=== PATIENT | male | born 1955 | race Caucasian/White ===

== ENCOUNTER 2017-05-14 08:19 | Day surgery (SDC) | payer OTHER ==
[~2017-05-14] VITALS: Ht 177.8 cm; Wt 105.0 kg
[2017-05-14] VITALS (11 sets, daily range): BP systolic 120–162; BP diastolic 63–84; PULSE 65–80; TEMP 36.5–37; O2SAT 94–98; Ht 177.8 cm; Wt 105.0 kg
[~2017-05-14 08:19] MED LIST: CALCTAB7 PO; CHOL100027 PO; CHROPOW21 PO; COEN100C15 PO; FINA5TAB4 PO; FLAXSEED OIL PO; GEMF600T3 PO; GLC500 PO; LISI20TA PO; MULT-513 PO; OMEG10007 PO; OXYC-57 PO; ROSU20TA PO; TAMS0.4C59 PO
--- NOTE | 2017-05-14 10:42 | Discharge Instructions ---
Discharge Instructions Procedure Procedure Date: May 14, 2017. Reason for visit: Lumbar Stenosis. Discharge Discharge Date: May 14, 2017. Discharge Diagnosis: lumbar pain Instructions Activity Recommendations: 1 Day-May resume regular activity, 48 Hours of decreased exertion, 1 Day with no driving/machine use Return to School/Work: no limitations Recommended Home Diet: Resume Previous Diet Allergies Coded Allergies: Apple (Verified Allergy, Unknown, DIFFICULTY BREATHING, 05/14/17) Cinnamon (Verified Allergy, Unknown, DIFFICULTY BREATHING, 05/14/17) Banks (Verified Allergy, Unknown, DIFFICULTY BREATHING, 05/14/17) Penicillins (Verified Allergy, Unknown, SWELLING, 05/14/17) Potato (Verified Allergy, Unknown, DIFFICULTY BREATHING WITH RAW POTATOES , 05/14/17) Tetracycline (Verified Allergy, Unknown, SWELLING, 05/14/17) Triprolidine (Verified Allergy, Unknown, SWELLING, 05/14/17) Unclassified Drugs (Verified Allergy, Unknown, SWELLING WITH ORENZYME, ) Raghu Lemon Recommendations: Call your doctor if: * Temperature above 101 degrees * Pain not relieved by pain medicine ordered * There is increased drainage or redness from any incision * You have any unanswered questions or concerns. Your Doctors Instructions noted above were prepared by provider James Freeman. Patient Signature Section: Patient Instructions Signature Page Eron Bennett Patient (or Guardian) Signature/Date: I have read and understand the instructions given to me by my caregivers. Caregiver/RN/Doctor Signature/Date: The above-named patient and/or guardian has received patient instructions on this date. + Original Patient Signature Page (only) stays with chart. Please make copy for patient.
[2017-05-14] MEDS ORDERED: ACETAMINOPHEN 500 MG TAB PO PRN (10:45)
--- NOTE | 2017-05-14 11:50 | DIAGNOSTIC IMAGING REPORT ---
LUMBAR SPINE WITH CLINICAL HISTORY: CT MYELOGRAM LUMBAR SPINE back pain TECHNIQUE: Transaxial acquisition with multi axial reformatted images. COMPARISON STUDY: 01/08/2012 FINDINGS: Study is considered virtually identical to the prior exam. Resolution is somewhat compromised due to change of body habitus. Postoperative changes consistent with laminectomy and fusion are again noted. These is seen at L4-L5 and L5-S1. Interpedicular screws are present at L3. Moderate disc space narrowing is unchanged at L4-L5 and L5-S1. Minimal disc bulges are again noted L1-L2 and L2-L3. Minimal narrowing of the spinal canal at L4-L5 is stable. There is no evidence for critical or high-grade stenotic process. There are findings of a narrowing left neural foramina at L5-S1 unchanged. Posterior fusion appears to be solid. IMPRESSION: 1. Identical exam compared to the prior study dated 01/08/2012. 2. Findings of posterior laminectomies and fusions at L4-L5, L5-S1, and L3. 3. The fixating hardware appears intact. 4. Minimal disc bulges L1-L2 and L2-L3 unchanged. 5. Mild narrowing of the spinal canal at L4-L5 also stable. 6. Narrowing left neural foramina at L5-S1 unchanged. 7. Findings of arachnoiditis on the prior study appears less prominent on the current exam. 8. Study is technically limited due to the patient's change in body habitus. The above report was generated using voice recognition software. It may contain grammatical, syntax or spelling errors. Electronically signed by: James Freeman M.D. 05/14/2017 11:48 AM Dictated Date/Time: 05/14/2017 11:36 AM
--- NOTE | 2017-05-14 12:07 | DIAGNOSTIC IMAGING REPORT ---
Myelogram, super/inter LUMBAR CLINICAL HISTORY: CHRONIC BACK PAIN TECHNIQUE: Under fluoroscopic guidance, 10 cc nonionic contrast was injected to the L3-L4 level of the lumbar spine. COMPARISON STUDY: 05/14/2017 FINDINGS: Interpedicular screws at L3 as well as posterior laminectomy and fusion at L4-L5 are noted and are considered stable. Disc spacers at L4-L5 and L5-S1 are stable. Degenerative narrowing of the disc primarily at L5-S1 are stable. There are findings of mild narrowing of spinal canal at L4-L5 unchanged. No additional significant compromise of the spinal canal is appreciated. There is slight disc bulges at L1-L2 and L2-L3. This is unchanged. Some coarsening of the nerve roots suggesting arachnoiditis is less prominent. IMPRESSION: 1. Stable to slightly improved exam compared to the prior study. 2. Stable postoperative changes including posterior laminectomy and fusion-type change. 3. Slight disc bulges at L1-L2 and L2-L3. 4. Mild narrowing of the spinal canal at L4-L5. 5. Findings of arachnoiditis on the prior exam are less prominent currently. 6. No complications were present or noted at the time of the exam. The above report was generated using voice recognition software. It may contain grammatical, syntax or spelling errors. Electronically signed by: James Freeman M.D. 05/14/2017 12:06 PM Dictated Date/Time: 05/14/2017 12:03 PM
[2017-05-22] MEDS ORDERED: LISI-787 PO (15:57)
[2017-05-22] MEDS ORDERED: METF-382 PO (15:57)
[2017-05-22] MEDS ORDERED: FLAX10007 PO (15:57)
[2017-05-22] MEDS ORDERED: GLIM4TAB2 PO (15:57)
[2017-05-22] MEDS ORDERED: ACT15 PO (15:57)
[2017-05-22] MEDS ORDERED: PRAV20TA PO (15:57)
== END 2017-05-14 15:10 | disposition home or self-care (01) ==
LOC: C.ACU 08:19
PROVIDERS: ATTEND Orthopaedic Surgery Orthopaedic Surgery of the Spine
DX: M99.83 Other biomechanical lesions of lumbar region (principal)

== ENCOUNTER 2017-05-27 07:04 | Observation (INO) | payer OTHER ==
[2017-05-22 15:57] VITALS: BMI 34.0
[2017-05-27] VITALS (8 sets, daily range): BP systolic 128–161; BP diastolic 78–98; PULSE 73–95; TEMP 36.3–36.8; O2SAT 95–99; Ht 177.8 cm; Wt 106.8 kg
[~2017-05-27] VITALS: Ht 177.8 cm; Wt 106.8 kg
[~2017-05-27 07:04] MED LIST changes: +ACT15 PO; -CHROPOW21 PO; +CLINDAMYCIN 600 MG/54 ML D5W IV SCH; +CLINDAMYCIN IV 600 MG in DEXTROSE 5% ADD-VANTAGE 50ML 50 ML IV SCH; -FINA5TAB4 PO; +FLAX10007 PO; -FLAXSEED OIL PO; -GEMF600T3 PO; -GLC500 PO; +GLIM4TAB2 PO; +LACTATED RINGER'S 1000ML 1,000 ML IV SCH; +LISI-787 PO; -LISI20TA PO; +METF-382 PO; -OMEG10007 PO; +PRAV20TA PO; -ROSU20TA PO; -TAMS0.4C59 PO
[2017-05-27] MEDS ORDERED: FENTANYL CITRATE INJ 50 MCG/1 ML 2 ML VIAL ONE ×3 (08:09→10:05)
[2017-05-27] MEDS ORDERED: MIDAZOLAM HCL 1 MG/ML 2ML VIAL ONE (08:09)
--- NOTE | 2017-05-27 08:42 | History & Physical Bridge Note ---
H&P Re-Evaluation Bridge Note: I have examined the patient, reviewed the History & Physical and in the interval since the performance of the History & Physical I have noted the following changes of clinical significance: No changes noted
--- NOTE | 2017-05-27 08:43 | History and Physical ---
History & Physical Date May 27, 2017. Chief Complaint Chronic back and leg pain History of Present Illness The patient is a 61 year old male with complaints of chronic back and leg pain Additional History Hepatic Disease: No Endocrine Disorder: No Kidney Disease: No Hypertension: Yes Heart Disease: No Bleeding Tendencies: No Infectious Diseases: No Allergies Coded Allergies: [place] (Verified Allergy, Unknown, DIFFICULTY BREATHING, 05/22/17) Penicillins (Verified Allergy, Unknown, SWELLING, 05/22/17) Potato (Verified Allergy, Unknown, DIFFICULTY BREATHING WITH RAW POTATOES , 05/22/17) Tetracycline (Verified Allergy, Unknown, SWELLING, 05/22/17) Triprolidine (Verified Allergy, Unknown, SWELLING, 05/22/17) Unclassified Drugs (Verified Allergy, Unknown, SWELLING WITH ORENZYME, 05/22/17) Home Medications Scheduled Calcium Carbonate-Vitamin D W/ (Caltrate 600 Plus), 1 TAB PO DAILY Cholecalciferol (Vitamin D 1000 Unit), 1,000 INTER.UNIT PO DAILY Coenzyme Q10 (Ubidecarenone) (Co Q10), 1 CAP PO DAILY Flaxseed (Linseed) (Flax Seed Oil), 1 CAP PO QAM Glimepiride (Glimepiride), 1 TAB PO QAM Lisinopril/Hctz (Zestoretic 20MG/12.5MG), 1 TAB PO QPM Metformin Ext Rel (Glucophage Ext Rel), 1 TAB PO BID Multivitamins/Minerals (Mvi With Minerals), 1 TAB PO DAILY Oxycodone/Acetaminophen 5MG/325MG (Percocet 5MG/325MG), 1 TABLET PO Q4HR PRN Pioglitazone (Actos), 15 MG PO QPM Pravastatin (Pravachol ), 20 MG PO QAM Physical Examination Skin: warm/dry, no rash Eyes: normal inspection, EOMI, sclerae normal ENT: normal ENT inspection, pharynx normal Head: normocephalic, atraumatic Neck: supple, no adenopathy, trachea midline Respiratory/Chest: lungs clear, normal breath sounds, no respiratory distress Cardiovascular: regular rate, rhythm, no edema, no murmur Abdomen / GI: normal bowel sounds, non tender Back: normal inspection Extremities: normal inspection, normal range of motion Neurologic/Psych: no motor/sensory deficits, alert, normal reflexes, oriented x 3 Diagnosis Chronic back and leg pain Plan of Treatment Spinal cord stimulator replacement
[2017-05-27] MEDS ORDERED: LABETALOL HCL IV 5 MG/ML 20ML IV PRN (08:45)
[2017-05-27] MEDS ORDERED: ATROPINE SULFATE 0.1 MG/ML 5ML SYR IV PRN (08:45)
[2017-05-27] MEDS ORDERED: HYDROmorphone INJ 1 MG/ML SYR IV PRN ×2 (08:45→10:45)
[2017-05-27] MEDS ORDERED: MEPERIDINE HCL 25 MG/ML CARP IV PRN (08:45)
[2017-05-27] MEDS ORDERED: ONDANSETRON INJ 2 MG/ML 2 ML VIAL IV PRN ×2 (08:45→10:45)
[2017-05-27] MEDS ORDERED: EpHEDrine SULFATE INJ 50 MG/ML AMP IV PRN (08:45)
[2017-05-27] MEDS ORDERED: BACITRACIN 50000 UNIT VIAL ONE (09:03)
[2017-05-27] MEDS ORDERED: BUPIVACAINE/EPINEPHRINE 0.5% MPF 1:200,000 30 ML VIAL ONE (09:03)
[2017-05-27] MEDS ORDERED: HYDROmorphone INJ 2 MG/ML SYR/VIAL ONE ×2 (10:18→10:36)
[2017-05-27] MEDS ORDERED: LIDOCAINE HCL 2% 2 ML VIAL (20MG/ML) ONE (10:22)
[2017-05-27] MEDS ORDERED: ONDANSETRON INJ 2 MG/ML 2 ML VIAL ONE (10:22)
[2017-05-27] MEDS ORDERED: ROCURONIUM BROMIDE 10 MG/ML 5 ML VIAL IV ONE (10:22)
[2017-05-27] MEDS ORDERED: DEXAMETHASONE SOD INJ 4 MG/ML VIAL ONE (10:22)
[2017-05-27] MEDS ORDERED: PROPOFOL IV EMULSION 10 MG/ML 20 ML VIAL IV ONE (10:22)
[2017-05-27] MEDS ORDERED: FLOSEAL HEMOSTATIC MATRIX 5ML TOP ONE (10:30)
[2017-05-27] MEDS ORDERED: KETOROLAC TROMETHAMINE 30 MG/ML VIAL ONE (10:40)
[2017-05-27] MEDS ORDERED: NEOSTIGMINE METHYLSULFATE 1 MG/ML 10ML VIAL ONE (10:40)
[2017-05-27] MEDS ORDERED: GLYCOPYRROLATE INJ 0.2 MG/ML VIAL ONE (10:40)
[2017-05-27] MEDS ORDERED: LORAZEPAM 1 MG TAB PO PRN (10:45)
[2017-05-27] MEDS ORDERED: DO NOT ADMINISTER PNEUMOCOCCAL VACCINE PRN ×2 (10:45)
[2017-05-27] MEDS ORDERED: LORAZEPAM INJ 1 MG in SYRINGE 0.5 ML IV PRN (10:45)
[2017-05-27] MEDS ORDERED: ACETAMINOPHEN 500 MG TAB PO PRN (10:45)
[2017-05-27] MEDS ORDERED: MAGNESIUM HYDROXIDE SUSP 30 ML UDC PO PRN (10:45)
[2017-05-27] MEDS ORDERED: ACETAMINOPHEN 325 MG TAB PO PRN (10:45)
[2017-05-27] MEDS ORDERED: OXYCODONE HCL IR 5 MG TAB (IMMEDIATE RELEASE) PO PRN (10:45)
[2017-05-27] MEDS ORDERED: DO NOT ADMINISTER FLU VACCINE PRN ×3 (10:45)
--- NOTE | 2017-05-27 10:45 | [facility] Operative Report ---
Operative Report Operative Date May 27, 2017. Pre-Operative Diagnosis Chronic back and bilateral leg pain Post-Operative Diagnosis same as pre-operative Procedure(s) Performed #1 removal of spinal cord stimulator paddle and battery. #2 revision laminotomy T10 11 and T11-T12. #3 placement of new 16-lead dorsal column stimulator paddle into position as well as an updated battery. Surgeon Dr. Franklyn Rider Bilingual Teacher Assistant Surgeon(s) SALAZAR Anders Estimated Blood Loss 20ml Findings None Specimens Specimen A: Explanted hardware from back Description of Procedure Patient was met with preoperatively case discussed all questions are dressed. After informed consent patient was taken to the operative suite and placed in prone position on the Rickey table on top Ramon frame. All bony prominences were well-padded eyes inspected to ensure no external pressure. This time the thoracal lumbar spine is prepped draped nostril fashion. Utilizing the previous incision site over the thoracic region sharp dissection with the assistance of Bovie cautery was performed onto an exposing the T10 11 laminotomy site and insertion of the paddle. The paddle was then released and removed without difficulty. I then exposed the T11 T 12 region as well. Performed to midline laminotomies removing scar tissue in order to place the new paddle centrally and in a better position to cover both back and bilateral leg pain. After this is complete paddle was tied down. The battery pocket was opened the former battery removed. Paddle leads were then taken to the previous battery site battery attached tested determined to be functional. It was then placed in the previous pocket. Incisions were copious irrigated 10 round BARON drain inserted into the thoracic region and subsequently closed with 1 Vicryl fascia 2-0 Vicryl subcutaneously for Monocryl for final skin closure. Steri-Strips sterile dressings placed. Patient we can taken to PACU stable condition. Please note Aurelia Molina was present at the entire procedure involved in patient positioning complex portions of the surgery and final skin closure. I attest to the content of the Intraoperative Record and any orders documented therein. Any exceptions are noted below.
[2017-05-27] MEDS ORDERED: ESMOLOL HCL 10 MG/ML 10 ML VIAL ONE (10:57)
[2017-05-27] MEDS: FENTANYL CITRATE INJ 50 MCG/1 ML 2 ML VIAL IV PRN ×2 (11:04→11:09)
--- NOTE | 2017-05-27 11:17 | DIAGNOSTIC IMAGING REPORT ---
INTRAOPERATIVE RADIOGRAPH CLINICAL HISTORY: Spinal cord stimulator replacement. Fluoroscopy time: 10 seconds. FINDINGS: A single spot fluoroscopic view of the thoracolumbar junction is presented. Spinal cord stimulator leads are in place. These project over the lower thoracic spine, likely at the level of T9. The leads are intact as visualized. IMPRESSION: Intraoperative image from stimulator lead placement as above. See operative report for detailed findings. Electronically signed by: Shahid Craven M.D. 05/27/2017 11:15 AM Dictated Date/Time: 05/27/2017 11:14 AM
--- NOTE | 2017-05-27 12:00 | Anesthesiology Progress Note ---
Anesthesia Post Op Note Date & Time May 27, 2017 at 12:00 Vital Signs Pain Intensity: 0.0 Vital Signs Past 12 Hours Date Time Temp Pulse Resp B/P (MAP) Pulse Ox O2 Delivery O2 Flow Rate FiO2 05/27/17 11:40 36.5 82 16 151/84 (106) 98 Nasal Cannula 2.0 05/27/17 11:40 98 Nasal Cannula 2.0 05/27/17 11:25 82 16 142/83 99 Nasal Cannula 4 05/27/17 11:15 86 16 132/86 99 Oxymask 4 05/27/17 11:00 83 16 163/97 98 Oxymask 10 05/27/17 10:52 36.4 81 16 178/98 98 Oxymask 10 05/27/17 07:38 36.3 82 20 157/98 (117) 97 Notes Mental Status: alert / awake / arousable, participated in evaluation Pt Amnestic to Procedure: Yes Nausea / Vomiting: adequately controlled Pain: adequately controlled Airway Patency, RR, SpO2: stable & adequate BP & HR: stable & adequate Hydration State: stable & adequate Anesthetic Complications: no major complications apparent
[2017-05-27] MEDS ORDERED: IV FLUIDS COMPLETED PRN (12:30)
[2017-05-27] MEDS: SODIUM CHLORIDE 0.9% 1000ML 1,000 ML IV SCH (12:49)
[2017-05-27] MEDS: CLINDAMYCIN IV 600 MG in DEXTROSE 5% 50ML 50 ML IV SCH ×2 (14:03→22:15)
[2017-05-27] MEDS ORDERED: RXC5 PO (15:13)
--- NOTE | 2017-05-27 15:14 | Discharge Instructions ---
Discharge Instructions Date of Service May 27, 2017. Admission Reason for Admission: Lumbar Post Laminectomy Syndrome Discharge Discharge Diagnosis / Problem: chronic back and leg pain Discharge Goals Goal(s): Decrease discomfort Activity Recommendations Activity Limitations: per Instructions/Follow-up section . Instructions / Follow-Up Instructions / Follow-Up ACTIVITY RECOMMENDATIONS: SELF CARE INSTRUCTIONS AFTER A LAMINECTOMY 1. No prolonged sitting (less than 30 minutes for the first 3 weeks after surgery). 2. No bending, lifting more than 5 pounds, or twisting (roll like a log when turning in bed). 3. You may shower 3 days after surgery if no drainage from wound. Thoroughly dry wound. Do not soak in the tub. 4. Please walk as much as you can for exercise. Gradually increase the distance that you walk as your endurance increases. 5. You may drive in 7-10 days if you are comfortable and no longer requiring pain medications. SPECIAL CARE INSTRUCTIONS: VERY IMPORTANT TO READ AND REVIEW A. Your surgical incision has been closed with a cosmetic suture under the skin that will dissolve in about 6 weeks. In 14 days, you can use a pair of clean scissors and cut the suture that is left outside of the skin at the ends of your incision. B. Complications are uncommon, but please contact us if you have any signs or symptoms of: 1. wound infection (fever higher than 102.5 degrees F, redness, separation of wound, drainage, or increasing pain from the incision) 2. blood clots in legs (pain, swelling, redness and warmth in legs) 3. urinary tract infection (fever higher than 102.5 degrees, burning upon urination or increased frequency of urination) 4. nerve problems (inability to walk on your toes or heels, numbness, loss of bowel or bladder control) 5. any other symptoms that concern you. C. Please call the office at if you have any concerns or questions about your operation or recovery. MANAGING PAIN AFTER SPINAL SURGERY 1. Narcotic medication is intended for short-term use and will be provided for surgical pain. Surgical pain usually lasts for a period of 4-6 weeks. Narcotic medication includes Percocet, Vicodin, Darvocet, Tylenol #3 or Lortab. 2. Longer-term pain is more appropriately treated with non-narcotic medication such as Tylenol ES. 3. Muscle spasm is not appropriately treated with narcotics. Muscle relaxers such as Soma, Flexeril or Skelaxin can be used along with Tylenol ES. 4. Remember that we all live with some "aches and pains". This is not unusual or uncommon after an injury or as we get older. 5. We will provide appropriate medication within the normal guidelines of their prescribed use. We will also be very cautious and aware of potential abuse and extended duration of patients' medication needs. 6. Please allow 2-3 days to process refills. Prescriptions will not be mailed but must be picked up at the office. FOLLOW UP VISIT: Keep your scheduled follow-up appointment. Any questions, please call the office at . Current Hospital Diet Patient's current hospital diet: Diabetes Type 2 Diet Discharge Diet Recommended Diet: Regular Diet Procedures Procedures Performed: #1 removal of spinal cord stimulator paddle and battery. #2 revision laminotomy T10 11 and T11-T12. #3 placement of new 16-lead dorsal column stimulator paddle into position as well as an updated battery. Pending Studies Studies pending at discharge: no Medical Emergencies . Who to Call and When: Medical Emergencies: If at any time you feel your situation is an emergency, please call 911 immediately. . Non-Emergent Contact Non-Emergency issues call your: Primary Care Provider . "Provider Documentation" section prepared by Franklyn Rider. . VTE Core Measure Inpt VTE Proph given/why not?: Jozef Silva, SCD's
[2017-05-27] MEDS ORDERED: PIOGLITAZONE TAB 15 MG TAB PO SCH (21:00)
[2017-05-27] MEDS ORDERED: LISINOPRIL/HCTZ 20/12.5MG TAB PO SCH (21:00)
[2017-05-27] MEDS: DOCUSATE SODIUM 100 MG CAP PO SCH (22:15)
[2017-05-28] MEDS: SODIUM CHLORIDE 0.9% 1000ML 1,000 ML IV SCH (01:06)
[2017-05-28 02:59] VITALS: BP 115/71; PULSE 90; TEMP 36.8; O2SAT 97
[2017-05-28] MEDS: CLINDAMYCIN IV 600 MG in DEXTROSE 5% 50ML 50 ML IV SCH (05:52)
[2017-05-28 07:49] VITALS: BP 121/75; PULSE 84; TEMP 36.5; O2SAT 97
--- NOTE | 2017-05-28 08:00 | Anesthesiology Progress Note ---
Anesthesia Post Op Note Date & Time May 28, 2017 at 08:00 Vital Signs Vital Signs Past 12 Hours Date Time Temp Pulse Resp B/P (MAP) Pulse Ox O2 Delivery O2 Flow Rate FiO2 05/28/17 07:49 36.5 84 18 121/75 (90) 97 Room Air 05/28/17 02:59 36.8 90 16 115/71 (86) 97 Room Air 05/27/17 23:44 Room Air 05/27/17 23:18 36.8 95 16 128/78 (95) 95 Room Air Notes Mental Status: alert / awake / arousable, participated in evaluation Pt Amnestic to Procedure: Yes Nausea / Vomiting: adequately controlled Pain: adequately controlled Airway Patency, RR, SpO2: stable & adequate BP & HR: stable & adequate Hydration State: stable & adequate Anesthetic Complications: no major complications apparent
[2017-05-28 08:15] VITALS: BP 121/75; PULSE 84; TEMP 36.5; O2SAT 97
[2017-05-28] MEDS ORDERED: PRAVASTATIN SOD 20 MG TAB PO SCH (09:00)
[2017-05-28] MEDS ORDERED: GLIMEPIRIDE 2 MG TAB PO SCH (09:00)
[2017-05-28] MEDS: DOCUSATE SODIUM 100 MG CAP PO SCH (09:28)
--- NOTE | 2017-05-28 11:26 | Discharge Summary ---
Orthopedic Discharge Summary Admission Date/Reason May 27, 2017 at 10:41 Lumbar Post Laminectomy Syndrome. Discharge Date/Disposition May 28, 2017 Home Diagnosis Principal Diagnosis: Chronic laminectomy syndrome Procedure(s) Performed Removal of dorsal column stimulator and leads Revision thoracic laminotomy/implantation of new spinal cord stimulator and leads. Medication Reconciliation New Medications: Oxycodone HCl (Oxycodone HCl) 5 Mg Tab 5 MG PO Q4H PRN for moderate pain (pain scale 4-6) for 30 Days, #60 TAB Continued Medications: Calcium Carbonate-Vitamin D W/ (Caltrate 600 Plus) 1 Tab Tab 1 TAB PO DAILY, TAB Cholecalciferol (Vitamin D 1000 Unit) 1,000 Unit Cap 1000 INTER.UNIT PO DAILY, CAP Coenzyme Q10 (Ubidecarenone) (Co Q10) 100 Mg Cap 1 CAP PO DAILY, CAP Flaxseed (Linseed) (Flax Seed Oil) 1,000 Mg Cap 1 CAP PO QAM Glimepiride (Glimepiride) 4 Mg Tab 1 TAB PO QAM, TAB 3 Refills Lisinopril/Hctz (Zestoretic 20MG/12.5MG) Tab 1 TAB PO QPM, TAB Metformin Ext Rel (Glucophage Ext Rel) 500 Mg Tab 1 TAB PO BID, TAB 3 Refills Multivitamins/Minerals (Mvi With Minerals) Tab 1 TAB PO DAILY, TAB Oxycodone/Acetaminophen 5MG/325MG (Percocet 5MG/325MG) Tab 1 TABLET PO Q4HR PRN, 0 Refills Pioglitazone (Actos) 15 Mg Tab 15 MG PO QPM Pravastatin (Pravachol ) 20 Mg Tab 20 MG PO QAM, TAB Admission Physical Exam As per Admitting History & Physical. Hospital Course Patient had an uneventful hospital course. BARON drain was removed postoperative day 1. He is up and and rotatory. Pain is controlled. Discharged on postoperative day 1 Discharge Instructions Please refer to the electronic Patient Visit Report (Discharge Instructions) for additional information.
[2017-05-28 12:04] VITALS: BP 131/78; PULSE 90; TEMP 36.9; O2SAT 96
[2017-05-29] MEDS ORDERED: BISACODYL 10 MG SUPP PR PRN (06:00)
[2017-05-29] MEDS ORDERED: BISACODYL 5 MG TABEC PO PRN (06:00)
[2017-05-30] MEDS ORDERED: POLYETHYLENE (MIRALAX) 17 GM PACK PO SCH (09:00)
== END 2017-05-28 13:34 | disposition home or self-care (01) ==
LOC: C.ACU 07:04 → C.3E 10:41 → ENRESERV 11:21
PROVIDERS: ADMIT Orthopaedic Surgery Orthopaedic Surgery of the Spine; ATTEND Orthopaedic Surgery Orthopaedic Surgery of the Spine
DX: M96.1 Postlaminectomy syndrome, not elsewhere classified (principal)